=== PATIENT | male | born 1955 | race African-American/Black ===

== ENCOUNTER 2017-03-14 12:03 | Day surgery (SDC) | payer MEDICAID ==
[~2017-03-14] VITALS: Ht 167.6 cm; Wt 78.0 kg
[~2017-03-14 12:03] MED LIST: AMLO10 PO; METO50; OMPR20CCR PO
[2017-03-14] MEDS ORDERED: MONT10TA4 PO (12:54)
[2017-03-14] MEDS ORDERED: CILO50TA PO (12:54)
[2017-03-14] MEDS ORDERED: GABA300C5 PO (12:54)
[2017-03-14] MEDS ORDERED: HYDR25TA5 PO (12:54)
[2017-03-14] MEDS ORDERED: ZANA4CAP PO (12:54)
[2017-03-14] MEDS ORDERED: ASPI81TA81 PO (12:54)
[2017-03-14] MEDS ORDERED: CELE200C PO (12:54)
[2017-03-14] MEDS ORDERED: TELM1TAB56 PO (12:54)
[2017-03-14 12:56] VITALS: BP 125/73; PULSE 120; RESP 18; O2SAT 92
[2017-03-14 12:57] LABS: MEAN CORPUSCULAR HGB CONC 29.9 % (32.0-36.0)
[2017-03-14 13:09] LABS: HEMATOCRIT 24.6 % (39.0-51.0); MEAN CELL VOLUME 64.1 FL (80.0-100.0); MEAN CORPUSCULAR HEMOGLOBIN 19.2 PG (27.0-34.0); PLATELET COUNT 638 TH/MM3 (150-450); RED BLOOD COUNT 3.84 MIL/MM3 (4.50-5.90); RED CELL DISTRIBUTION WIDTH 19.5 % (11.6-17.2); WHITE BLOOD COUNT 8.1 TH/MM3 (4.0-11.0)
[2017-03-14 13:10] LABS: HEMO FLAGS AUTO DIFF
[2017-03-14] MEDS ORDERED: SODIUM BICARBONATE 100 MEQ in D5W 1000 ML IV SCH (13:15)
[2017-03-14 13:17] LABS: INTERNATIONAL NORMALIZED RATIO 0.9 RATIO; PROTHROMBIN TIME - PATIENT 10.3 SEC (9.8-11.6)
[2017-03-14 13:28] LABS: BICARBONATE 25.3 MEQ/L (21.0-32.0); POTASSIUM 4.4 MEQ/L (3.5-5.1)
[2017-03-14 13:32] LABS: CORRECTED NUCLEATED RBC 1 /100 WBC (0-0); NEUTROPHIL # MANUAL DIFF 6.2 TH/MM3 (1.8-7.7); POLYS (SEG NEUTROPHILS) 77 % (16-70); WBC DIFF SAMPLE 100
[2017-03-14 13:33] LABS: PLATELET ESTIMATE SMEAR HIGH (NORMAL); PLATELET MORPHOLOGY NORMAL (NORMAL)
[2017-03-14 13:34] LABS: ACANTHOCYTES OCC (NORMAL); SCAN/DIFF FINAL DIFF MANUAL
[2017-03-14] MEDS ORDERED: IOHEXOL 350 MG/ML 50 ML BTL (for Cath Lab) OTHER ONE (15:45)
[2017-03-14] MEDS ORDERED: HEPARIN-NS/PF INJ 500 ML ONE (15:52)
[2017-03-14] MEDS ORDERED: MIDAZOLAM HCL 5 MG/5 ML VIAL ONE (15:53)
[2017-03-14] MEDS ORDERED: HEPARIN SODIUM - IV 10,000 UNITS/10 ML VIAL ONE (15:53)
[2017-03-14] MEDS ORDERED: NITROGLYCERIN INJ 5 ML ONE (15:53)
--- NOTE | 2017-03-14 16:23 | HHI.PR ---
Immediate Post Op Note Procedure Date: March 14, 2017 Pre Op Diagnosis: R LE claudication, PAD Post Op Diagnosis: R LE claudication, PAD Surgeon: Miguel Murphy Second Chef(s): none Procedure: R LE angiogram Findings: distal RAIL MANAGER stenosis Patent SFA, popliteal and 3 vessel runoff Complications: none Specimen(s) removed: none Estimated blood loss: 5 mL Anesthesia: MAC Drains: None Patient to: Other (DOCU) Patient Condition: Good Date/Time of Procedure: SEE SURGICAL CARE RECORD Miguel Murphy MD March 14, 2017 16:23
--- NOTE | 2017-03-16 10:19 | MP ---
cc: MIGUEL MURPHY MD DATE OF SURGERY 03/14/2017 PREOPERATIVE DIAGNOSIS Right lower extremity claudication, peripheral arterial occlusive disease. POSTOPERATIVE DIAGNOSIS Right lower extremity claudication, peripheral arterial occlusive disease. PROCEDURE Right lower extremity angiogram ATTENDING SURGEON Miguel Murphy MD ANESTHESIA Local with sedation INDICATIONS Mr. Rodriguez is a 59 year-old gentleman with right lower extremity claudication. He previously had an SFA angioplasty. He has a palpable femoral pulse and is taken to the operating room for angiographic evaluation and treatment. He has no prior catheterization available for my review since the recurrence of his symptoms. DESCRIPTION OF PROCEDURE Informed consent was obtained from the patient. He was taken to the operating room and placed supine on the operating room table. An appropriate time out was taken to ensure the patient's identity, operative site and planned procedure. The administration of antibiotics was not necessary since this is a clean procedure without planned implantation of any foreign object. Everyone in the room agreed with the time out and we proceeded. His left groin was anesthetized with 1% lidocaine and a 21 gauge micropuncture needle was used to access the left common femoral artery. This was exchanged using Seldinger technique for a micropuncture sheath through which a 0.025 Glidewire was introduced. The micropuncture sheath was exchanged for a 4 [place] sheath and a VCF catheter was placed over the wire into the sheath and an iliac angiogram was obtained. The glide wire was reintroduced and navigated down to the right common femoral artery. The VCF catheter was advanced over this and the right lower extremity arteriogram was obtained. The wire, catheter and sheath were removed. Pressure was held for hemostasis. There were no complications and I was present for the entire procedure. INTERPRETATION IMAGES The patient has patent right common and external iliac arteries without any hemodynamically significant stenoses. The right common iliac artery is patent except for the distal aspect which has a high grade stenosis. The SFA is patent. The profunda is patent and the popliteal artery is patent. There is three vessel runoff below the knee. Miguel Murphy MD RJF/DJL /4:27 PM /10:08 AM
== END 2017-03-14 19:15 | disposition home or self-care (01) ==
LOC: HDOC 12:03 → HDIC 12:04 → HDOC 19:15
PROVIDERS: ATTEND Surgery
DX: I70.211 Atherosclerosis of native arteries of extremities with intermittent claudication, right leg (principal); I10 Essential (primary) hypertension; J44.9 Chronic obstructive pulmonary disease, unspecified; E11.9 Type 2 diabetes mellitus without complications; Z79.01 Long term (current) use of anticoagulants
CPT/HCPCS: 36246; 75710; 80048; 85007; 85027; 85610; C1769; C1893; J1644; J2250; J3010; Q9967

== ENCOUNTER 2017-03-23 16:19 | Emergency (ER) | payer MEDICAID ==
[~2017-03-23] VITALS: Ht 167.6 cm; Wt 78.0 kg
[~2017-03-23 16:19] MED LIST changes: +ASPI81TA81 PO; +CELE200C PO; +CILO50TA PO; +GABA300C5 PO; +HYDR25TA5 PO; -METO50; +MONT10TA4 PO; +TELM1TAB56 PO; +ZANA4CAP PO
[2017-03-23 16:21] VITALS: BP 117/66; PULSE 118; RESP 20; TEMP 98; O2SAT 98
--- NOTE | 2017-03-23 16:26 | PD ---
Physical Exam Time Seen by Provider: 16:22 Narrative 61yo M c/o painful swallowing with a lump in his throat on the left side x 2months. Has been seen by PCP and was given Azithromycin, which he took 2 months ago. Can swallow own saliva and fluids. Chokes on solid foods. Denies fever, vomiting. Patient seen in triage. Awaiting bed placement. VS reviewed. Data Data Last Documented VS Vital Signs Date Time Temp Pulse Resp B/P Pulse Ox O2 Delivery O2 Flow Rate FiO2 03/23/17 16:21 98.0 118 20 117/66 98 MDM Supervised Visit with MING: Tawny Bianchi March 23, 2017 16:26
[2017-03-23 17:44] LABS: MEAN CORPUSCULAR HGB CONC 29.4 % (32.0-36.0)
[2017-03-23 17:45] VITALS: O2SAT 97
[2017-03-23] MEDS ORDERED: SODIUM CHLORIDE 0.9% FLUSH 10 ML FLUSH IV FLUSH PRN (17:45)
--- NOTE | 2017-03-23 17:47 | PD ---
HPI Chief Complaint: ENT Complaint Time Seen by Provider: 17:44 Travel History International Travel<30 days: No Contact w/Intl Traveler<30days: No Traveled to known affect area: No History of Present Illness HPI Patient comes in complaining of foreign body sensation in his throat ongoing for 2 months. Patient states he has a painful lump when he swallows the left side of his neck. Patient states that he took a Z-Lon prescribed by Dr. Branch this seemed to help a little bit however he continues to have symptoms. Patient reports symptoms are getting progressively worse. Patient states he is able to swallow solids and liquids however swallowing solids is becoming more more difficult. Patient states when he swallows liquids starts off difficulty out of the feels as though throat opens up and he is able to swallow better. Denies any fevers, weight loss, shortness breath, chest pain, or radiation of the pain. PFSH Past Medical History Asthma: Yes Blood Disorders: No Heart Rhythm Problems: No Cancer: No Cardiovascular Problems: Yes High Cholesterol: Yes Chest Pain: No Congestive Heart Failure: No COPD: Yes Diabetes: Yes Diminished Hearing: No Endocrine: Yes Gastrointestinal Disorders: No GERD: Yes Glaucoma: No Genitourinary: No Hepatitis: No Hiatal Hernia: No Hypertension: Yes Immune Disorder: No Musculoskeletal: Yes Neurologic: No Psychiatric: No Reproductive: No Respiratory: Yes (HX RIGHT PNEUMOTHORAX - CONSTRUCTION ACCIDENT) Integumentary: No Sleep Apnea: No Thyroid Disease: No Ulcer: Yes Past Surgical History Body Medical Devices: METAL PLATE IN ANKLE Thoracic Surgery: No Social History Alcohol Use: Yes (2-3/DAY) Tobacco Use: No (Reform 11 months) Substance Use: Yes (Marijuana) Allergies-Medications (Allergen,Severity, Reaction): Coded Allergies: Aspirin (Verified Adverse Reaction, Severe, Heartburn, 03/23/17) Reported Meds & Prescriptions Reported Meds & Active Scripts Active Reported Amlodipine (Amlodipine Besylate) 5 Mg Tab 5 Mg PO HS Zanaflex (Tizanidine HCl) 4 Mg Cap 4 Mg PO BID Micardis (Telmisartan) 80 Mg Tab 80 Mg PO DAILY Montelukast (Montelukast Sodium) 10 Mg Tab 10 Mg PO HS Hydrochlorothiazide 25 Mg Tab 25 Mg PO DAILY Gabapentin 300 Mg Cap 300 Mg PO HS Cilostazol 50 Mg Tab 50 Mg PO BID Celebrex (Celecoxib) 200 Mg Cap 200 Mg PO BID Aspir-81 (Aspirin) 81 Mg Tabdr 81 Mg PO DAILY Review of Systems Except as stated in HPI: all other systems reviewed are Neg Physical Exam Narrative GENERAL: Well-developed, overly nourished, in no acute distress, and non-ill appearing. SKIN: Focused skin assessment warm and dry. HEAD: Atraumatic. Normocephalic. EYES: Pupils equal and round. EOMI. No scleral icterus. No injection or drainage. ENT: No nasal bleeding or discharge. Mucous membranes pink and moist. Posterior pharynx nonerythematous without exudate. Uvula is midline. Patient speaking in full sentences without difficulty. Patient is able swallow his own saliva. NECK: Trachea midline. No cervical lymphadenopathy or palpable masses appreciated. Supple. No nuclear rigidity. CARDIOVASCULAR: Regular rate and rhythm. No murmur appreciated. RESPIRATORY: No accessory muscle use. No respiratory distress. Clear to auscultation. Breath sounds equal bilaterally. MUSCULOSKELETAL: No obvious deformities. No clubbing. No cyanosis. No edema. Full range of motion. NEUROLOGICAL: Awake and alert. No obvious cranial nerve deficits. Motor grossly within normal limits. Normal speech. PSYCHIATRIC: Appropriate mood and affect; insight and judgment normal. Data Data Last Documented VS Vital Signs Date Time Temp Pulse Resp B/P Pulse Ox O2 Delivery O2 Flow Rate FiO2 03/23/17 21:39 96 15 116/65 99 03/23/17 17:51 Room Air 03/23/17 16:21 98.0 Orders Basic Metabolic Panel (Bmp) (03/23/17 17:42) Complete Blood Count With Diff (03/23/17 17:42) Prothrombin Time / Inr (Pt) (03/23/17 17:42) Act Partial Throm Time (Ptt) (03/23/17 17:42) Iv Access Insert/Monitor (03/23/17 17:42) Ecg Monitoring (03/23/17 17:42) Oximetry (03/23/17 17:42) Sodium Chloride 0.9% Flush (Ns Flush) (03/23/17 17:45) Ct Soft Tiss Neck W/O Iv Cont (03/23/17 ) Potassium, Serum (K) (03/23/17 20:43) Labs Laboratory Tests Test 03/23/17 03/23/17 19:30 20:45 White Blood Count 12.1 TH/MM3 Red Blood Count 3.98 MIL/MM3 Hemoglobin 7.5 GM/DL Hematocrit 25.4 % Mean Corpuscular Volume 63.7 FL Mean Corpuscular Hemoglobin 18.8 PG Mean Corpuscular Hemoglobin 29.4 % Concent Red Cell Distribution Width 18.6 % Platelet Count 753 TH/MM3 Mean Platelet Volume 7.8 FL Neutrophils (%) (Auto) 62.1 % Lymphocytes (%) (Auto) 28.2 % Monocytes (%) (Auto) 7.5 % Eosinophils (%) (Auto) 0.4 % Basophils (%) (Auto) 1.8 % Neutrophils # (Auto) 7.5 TH/MM3 Lymphocytes # (Auto) 3.4 TH/MM3 Monocytes # (Auto) 0.9 TH/MM3 Eosinophils # (Auto) 0.1 TH/MM3 Basophils # (Auto) 0.2 TH/MM3 CBC Comment DIFF FINAL Differential Comment Prothrombin Time 9.6 SEC Prothromb Time International 0.9 RATIO Ratio Activated Partial 21.5 SEC Thromboplast Time Sodium Level 137 MEQ/L Potassium Level 6.3 MEQ/L 4.6 MEQ/L Chloride Level 106 MEQ/L Carbon Dioxide Level 21.0 MEQ/L Anion Gap 10 MEQ/L Blood Urea Nitrogen 22 MG/DL Creatinine 2.11 MG/DL Estimat Glomerular Filtration 39 ML/MIN Rate Random Glucose 87 MG/DL Calcium Level 9.1 MG/DL MDM Medical Decision Making Medical Screen Exam Complete: Yes Emergency Medical Condition: Yes Differential Diagnosis Dysphagia, abscess, mass, other Narrative Course Patient was seen and examined. Initial lab for studies and radiology studies were ordered. Potassium was noted to be elevated on initial laboratory report but is hemolyzed. We'll recheck potassium. Patient was signed out to Dr. Srivastava at the end of my shift. Please see his documentation for final diagnosis and disposition. Allan Alejandra March 23, 2017 17:46
[2017-03-23 17:51] VITALS: BP 106/66; PULSE 110; RESP 16; O2SAT 100
[2017-03-23] MEDS ORDERED: AMLO5TAB2 PO (18:17)
[2017-03-23 19:51] LABS: AUTOMATED NEUTROPHIL # 7.5 TH/MM3 (1.8-7.7); BASOPHIL # 0.2 TH/MM3 (0-0.2); BASOPHIL % 1.8 % (0.0-2.0); EOSINOPHIL # 0.1 TH/MM3 (0-0.4); EOSINOPHIL % 0.4 % (0.0-4.0); HEMATOCRIT 25.4 % (39.0-51.0); HEMO FLAGS DIFF FINAL; LYMPH % 28.2 % (9.0-44.0); LYMPHOCYTE # 3.4 TH/MM3 (1.0-4.8); MEAN CELL VOLUME 63.7 FL (80.0-100.0); MEAN CORPUSCULAR HEMOGLOBIN 18.8 PG (27.0-34.0); MONO % 7.5 % (0.0-8.0); NEUT % 62.1 % (16.0-70.0); PLATELET COUNT 753 TH/MM3 (150-450); RED BLOOD COUNT 3.98 MIL/MM3 (4.50-5.90); RED CELL DISTRIBUTION WIDTH 18.6 % (11.6-17.2); WHITE BLOOD COUNT 12.1 TH/MM3 (4.0-11.0)
[2017-03-23 19:57] LABS: APTT (PATIENT) 21.5 SEC (24.3-30.1); INTERNATIONAL NORMALIZED RATIO 0.9 RATIO; PROTHROMBIN TIME - PATIENT 9.6 SEC (9.8-11.6)
[2017-03-23 20:31] LABS: POTASSIUM 6.3 MEQ/L (3.5-5.1)
--- NOTE | 2017-03-23 20:48 | PD ---
Physical Exam Narrative Patient was seen by bindery library technical assistant and signed out to me. Patient has history of GI bleed, GERD, chronic kidney disease, cardiac arrhythmia, hypertension, asthma, and was seen by GI specialist in the past. Data Data Last Documented VS Vital Signs Date Time Temp Pulse Resp B/P Pulse Ox O2 Delivery O2 Flow Rate FiO2 03/23/17 21:39 96 15 116/65 99 03/23/17 17:51 Room Air 03/23/17 16:21 98.0 Orders Basic Metabolic Panel (Bmp) (03/23/17 17:42) Complete Blood Count With Diff (03/23/17 17:42) Prothrombin Time / Inr (Pt) (03/23/17 17:42) Act Partial Throm Time (Ptt) (03/23/17 17:42) Iv Access Insert/Monitor (03/23/17 17:42) Ecg Monitoring (03/23/17 17:42) Oximetry (03/23/17 17:42) Sodium Chloride 0.9% Flush (Ns Flush) (03/23/17 17:45) Ct Soft Tiss Neck W/O Iv Cont (03/23/17 ) Potassium, Serum (K) (03/23/17 20:43) Labs Laboratory Tests Test 03/23/17 03/23/17 19:30 20:45 White Blood Count 12.1 TH/MM3 Red Blood Count 3.98 MIL/MM3 Hemoglobin 7.5 GM/DL Hematocrit 25.4 % Mean Corpuscular Volume 63.7 FL Mean Corpuscular Hemoglobin 18.8 PG Mean Corpuscular Hemoglobin 29.4 % Concent Red Cell Distribution Width 18.6 % Platelet Count 753 TH/MM3 Mean Platelet Volume 7.8 FL Neutrophils (%) (Auto) 62.1 % Lymphocytes (%) (Auto) 28.2 % Monocytes (%) (Auto) 7.5 % Eosinophils (%) (Auto) 0.4 % Basophils (%) (Auto) 1.8 % Neutrophils # (Auto) 7.5 TH/MM3 Lymphocytes # (Auto) 3.4 TH/MM3 Monocytes # (Auto) 0.9 TH/MM3 Eosinophils # (Auto) 0.1 TH/MM3 Basophils # (Auto) 0.2 TH/MM3 CBC Comment DIFF FINAL Differential Comment Prothrombin Time 9.6 SEC Prothromb Time International 0.9 RATIO Ratio Activated Partial 21.5 SEC Thromboplast Time Sodium Level 137 MEQ/L Potassium Level 6.3 MEQ/L 4.6 MEQ/L Chloride Level 106 MEQ/L Carbon Dioxide Level 21.0 MEQ/L Anion Gap 10 MEQ/L Blood Urea Nitrogen 22 MG/DL Creatinine 2.11 MG/DL Estimat Glomerular Filtration 39 ML/MIN Rate Random Glucose 87 MG/DL Calcium Level 9.1 MG/DL [facility] Supervised Visit with MING: Yes Interpretation(s) 22:[address] scan of the neck shows mild nonspecific adenopathy. CBC stable since last visit. Potassium 4.6. BUN 22. Creatinine 2.11. Diagnosis Primary Impression: Dysphagia Qualified Code: R13.12 - Oropharyngeal dysphagia Additional Impression: Anemia Qualified Code: D64.9 - Anemia, unspecified type Patient Instructions: General Instructions Additional Instruction: Continue with medications. Follow-up with personal physician and GI specialist. Return if worse. Med/Other Pt SpecificInfo: No Change to Meds Disposition: 01 DISCHARGE HOME Condition: Stable Vinny Srivastava MD March 23, 2017 20:48
[2017-03-23 21:39] VITALS: BP 116/65; PULSE 96; RESP 15; O2SAT 99
--- NOTE | 2017-03-23 21:58 | RADRPT ---
EXAM DATE/TIME: 03/23/2017 21:19 [place] COMPARISON: No previous studies available for comparison. INDICATIONS : Sore throat, possible foreign body. RADIATION DOSE: 15.00 CTDIvol (mGy) MEDICAL HISTORY : Hypertension. Gastroesophageal reflux disease. Diabetes mellitus type 2. SURGICAL HISTORY : None. ENCOUNTER: Initial ACUITY: 1 day PAIN SCORE: 5/10 LOCATION: Throat TECHNIQUE: Volumetric scanning of the neck was performed. Using automated exposure control and a djustment of the mA and/or kV according to patient size, radiation dose was kept as low as reasonably achievable to obtain optimal diagnostic quality images. FINDINGS: Study was done without intravenous contrast. There is minimal nonspecific adenopathy e vident. Definite mass is not appreciated. I see no radiopaque foreign body. Calcification is seen in the right lobe of the thyroid. CONCLUSION: 1. I see no radiopaque foreign body. 2. Minimal nonspecific adenopathy. Zheng Ramirez MD FACR on March 23, 2017 at 21:45 Board Certified Radiologist. This report was verified electronically.
== END 2017-03-23 22:33 | disposition home or self-care (01) ==
LOC: NEPD 16:19
DX: R13.12 Dysphagia, oropharyngeal phase (principal); D64.9 Anemia, unspecified; E11.9 Type 2 diabetes mellitus without complications; I10 Essential (primary) hypertension; E78.00 Pure hypercholesterolemia, unspecified; Z87.09 Personal history of other diseases of the respiratory system; Z86.79 Personal history of other diseases of the circulatory system; Z87.19 Personal history of other diseases of the digestive system; Z87.39 Personal history of other diseases of the musculoskeletal system and connective tissue
CPT/HCPCS: 70490; 80048; 84132; 85025; 85610; 85730

== ENCOUNTER 2017-03-25 16:42 | Emergency (ER) | payer MEDICAID ==
[~2017-03-25] VITALS: Ht 167.6 cm; Wt 78.0 kg
[~2017-03-25 16:42] MED LIST changes: +AMLO5TAB2 PO
[2017-03-25 16:51] LABS: MEAN CORPUSCULAR HGB CONC 29.8 % (32.0-36.0)
[2017-03-25 16:52] VITALS: BP 113/63; PULSE 107; RESP 16; TEMP 98.2; O2SAT 100
[2017-03-25 16:56] VITALS: RESP 16; O2SAT 100
[2017-03-25] MEDS ORDERED: SODIUM CHLORID 0.9% 500 ML INJ 500 ML IV ONE (17:00)
[2017-03-25] MEDS ORDERED: SODIUM CHLORIDE 0.9% FLUSH 10 ML FLUSH IVF PRN (17:00)
--- NOTE | 2017-03-25 17:10 | PD ---
HPI Chief Complaint: General Weakness Time Seen by Provider: 16:46 Travel History International Travel<30 days: No Contact w/Intl Traveler<30days: No Traveled to known affect area: No History of Present Illness HPI Patient is a 61-year-old male presents emergency Department with complaint of generalized weakness and a near syncopal episode. Patient states that he has been well recently. He has some family from [place] visit spontaneously and spent the majority of the day outside in the heat. Believes he may be dehydrated. Apparently he stood up, became lightheaded, dizzy with presyncopal episode. States he was nauseous and broke out into a sweat. EMS called, noted patient to be slightly hypotensive with systolics in the 90s upon arrival. In the interim blood pressures normalized and patient feels improved. At no point time did he have any chest pain, shortness of breath, palpitations. PFSH Past Medical History Asthma: Yes Blood Disorders: No Heart Rhythm Problems: No Cancer: No Cardiovascular Problems: Yes (HTN) High Cholesterol: Yes Chest Pain: No Congestive Heart Failure: No COPD: Yes Diabetes: Yes Patient Takes Glucophage: No Diminished Hearing: No Endocrine: Yes Gastrointestinal Disorders: No GERD: Yes Glaucoma: No Genitourinary: No Hepatitis: No Hiatal Hernia: No Hypertension: Yes Immune Disorder: No Implanted Vascular Access Dvce: Yes (bilatera femoral stents) Musculoskeletal: Yes Neurologic: No Psychiatric: No Reproductive: No Respiratory: Yes (HX RIGHT PNEUMOTHORAX - CONSTRUCTION ACCIDENT) Integumentary: No Sleep Apnea: No Thyroid Disease: No Ulcer: Yes Past Surgical History Body Medical Devices: METAL PLATE IN ANKLE Thoracic Surgery: No Other Surgery: No Social History Alcohol Use: Yes (2-3/DAY) Tobacco Use: No (Reform 11 months) Substance Use: Yes (Marijuana) Allergies-Medications (Allergen,Severity, Reaction): Coded Allergies: Aspirin (Verified Adverse Reaction, Severe, Heartburn, 03/25/17) Reported Meds & Prescriptions Reported Meds & Active Scripts Active Reported Amlodipine (Amlodipine Besylate) 5 Mg Tab 5 Mg PO HS Zanaflex (Tizanidine HCl) 4 Mg Cap 4 Mg PO BID Micardis (Telmisartan) 80 Mg Tab 80 Mg PO DAILY Montelukast (Montelukast Sodium) 10 Mg Tab 10 Mg PO HS Hydrochlorothiazide 25 Mg Tab 25 Mg PO DAILY Gabapentin 300 Mg Cap 300 Mg PO HS Cilostazol 50 Mg Tab 50 Mg PO BID Celebrex (Celecoxib) 200 Mg Cap 200 Mg PO BID Aspir-81 (Aspirin) 81 Mg Tabdr 81 Mg PO DAILY Review of Systems Except as stated in HPI: all other systems reviewed are Neg Physical Exam Narrative GENERAL: Well-appearing middle-aged male in no acute distress SKIN: Focused skin assessment warm/dry. HEAD: Normocephalic. EYES: Pupils equal and round. No scleral icterus. No injection or drainage. ENT: No nasal bleeding or discharge. Mucous membranes pink and moist. NECK: Supple CARDIOVASCULAR: Borderline tachycardia with heart rate in the 100s, regular rhythm. No murmur appreciated. RESPIRATORY: No accessory muscle use. Clear to auscultation. Breath sounds equal bilaterally. GASTROINTESTINAL: Abdomen soft, non-tender, nondistended. Rotund MUSCULOSKELETAL: No obvious deformities. No edema. NEUROLOGICAL: Awake and alert. No obvious cranial nerve deficits. Motor grossly within normal limits. Normal speech. PSYCHIATRIC: Appropriate mood and affect; insight and judgment normal. Data Data Last Documented VS Vital Signs Date Time Temp Pulse Resp B/P Pulse Ox O2 Delivery O2 Flow Rate FiO2 03/25/17 16:56 16 100 Room Air 03/25/17 16:52 98.2 107 113/63 Orders Electrocardiogram (03/25/17 16:50) Basic Metabolic Panel (Bmp) (03/25/17 16:50) Complete Blood Count With Diff (03/25/17 16:50) Ecg Monitoring (03/25/17 16:50) Iv Access Insert/Monitor (03/25/17 16:50) Oximetry (03/25/17 16:50) Sodium Chloride 0.9% Flush (Ns Flush) (03/25/17 17:00) Sodium Chlorid 0.9% 500 Ml Inj (Ns 500 M (03/25/17 17:00) Labs Laboratory Tests Test 03/25/17 17:05 White Blood Count 10.8 TH/MM3 Red Blood Count 4.12 MIL/MM3 Hemoglobin 7.7 GM/DL Hematocrit 26.0 % Mean Corpuscular Volume 63.1 FL Mean Corpuscular Hemoglobin 18.8 PG Mean Corpuscular Hemoglobin 29.8 % Concent Red Cell Distribution Width 19.2 % Platelet Count 613 TH/MM3 Mean Platelet Volume 7.5 FL Neutrophils (%) (Auto) 59.6 % Lymphocytes (%) (Auto) 30.3 % Monocytes (%) (Auto) 7.9 % Eosinophils (%) (Auto) 0.8 % Basophils (%) (Auto) 1.4 % Neutrophils # (Auto) 6.4 TH/MM3 Lymphocytes # (Auto) 3.3 TH/MM3 Monocytes # (Auto) 0.8 TH/MM3 Eosinophils # (Auto) 0.1 TH/MM3 Basophils # (Auto) 0.1 TH/MM3 CBC Comment DIFF FINAL Differential Comment Sodium Level 138 MEQ/L Potassium Level 4.9 MEQ/L Chloride Level 105 MEQ/L Carbon Dioxide Level 24.4 MEQ/L Anion Gap 9 MEQ/L Blood Urea Nitrogen 21 MG/DL Creatinine 2.03 MG/DL Estimat Glomerular Filtration 41 ML/MIN Rate Random Glucose 120 MG/DL Calcium Level 9.3 MG/DL MDM Medical Decision Making Medical Screen Exam Complete: Yes Emergency Medical Condition: Yes Medical Record Reviewed: Yes Differential Diagnosis 61-year-old male here with complaint of presyncopal episode. Differential includes heat exhaustion/heat stroke, presyncope, vasovagal, dehydration, electrolyte abnormality, symptomatic anemia, arrhythmia. Narrative Course Patient placed on monitor, IV established and blood obtained. Twelve-lead EKG shows sinus tachycardia, heart rate [address] abnormalities, normal intervals. Given 500 mL normal saline bolus. CBC, BMP notable for baseline anemia and renal insufficiency. Patient felt improved and will be discharged home. Diagnosis Primary Impression: Pre-syncope Additional Impressions: Anemia Qualified Code: D64.9 - Anemia, unspecified type CKD (chronic kidney disease) Qualified Code: N18.9 - Chronic kidney disease, unspecified CKD stage Referrals: Primary Care Physician as needed Additional Instructions: Drink plenty of fluids and avoid prolonged heat exposure. Med/Other Pt SpecificInfo: No Change to Meds Disposition: 01 DISCHARGE HOME Condition: Stable Татьяна Fuller MD March 25, 2017 17:10
[2017-03-25 17:37] LABS: AUTOMATED NEUTROPHIL # 6.4 TH/MM3 (1.8-7.7); BASOPHIL # 0.1 TH/MM3 (0-0.2); BASOPHIL % 1.4 % (0.0-2.0); EOSINOPHIL # 0.1 TH/MM3 (0-0.4); EOSINOPHIL % 0.8 % (0.0-4.0); HEMO FLAGS DIFF FINAL; LYMPH % 30.3 % (9.0-44.0); LYMPHOCYTE # 3.3 TH/MM3 (1.0-4.8); MEAN CELL VOLUME 63.1 FL (80.0-100.0); MEAN CORPUSCULAR HEMOGLOBIN 18.8 PG (27.0-34.0); MONO % 7.9 % (0.0-8.0); NEUT % 59.6 % (16.0-70.0); PLATELET COUNT 613 TH/MM3 (150-450); RED BLOOD COUNT 4.12 MIL/MM3 (4.50-5.90); RED CELL DISTRIBUTION WIDTH 19.2 % (11.6-17.2); WHITE BLOOD COUNT 10.8 TH/MM3 (4.0-11.0)
[2017-03-25 17:58] LABS: BICARBONATE 24.4 MEQ/L (21.0-32.0); POTASSIUM 4.9 MEQ/L (3.5-5.1)
--- NOTE | 2017-03-26 16:48 | EKG ---
Date Performed: 03/25/2017 Time Performed: 16:51:53 PTAGE: 61 years EKG: SINUS TACHYCARDIA ST ELEVATION, CONSIDER INFERIOR INJURY ACUTE IN INTERPRETATION BASE D ON A DEFAULT AGE OF 40 YEARS PREVIOUS TRACING 03/15/2014 @ 15.28.26 Compared to prior tracing no significant change DOCTOR: Trista Keyes Interpretating Date/Time 03/26/2017 16:46:43
--- NOTE | 2017-03-26 16:49 | EKG ---
Date Performed: 03/25/2017 Time Performed: 17:01:58 PTAGE: 61 years EKG: SINUS TACHYCARDIA ABNORMAL RHYTHM ECG INTERPRETATION BASED ON A DEFAULT AGE OF 40 YEARS PREVIOUS TRACING : 03/25/2017 16.53 Compared to prior tracing no significant change DOCTOR: Trista Keyes Interpretating Date/Time 03/26/2017 16:47:09
--- NOTE | 2017-03-26 16:49 | EKG ---
Date Performed: 03/25/2017 Time Performed: 16:53:05 PTAGE: 61 years EKG: SINUS TACHYCARDIA ABNORMAL RHYTHM ECG INTERPRETATION BASED ON A DEFAULT AGE OF 40 YEARS PREVIOUS TRACING : 03/25/2017 16.51 Compared to prior tracing no significant change DOCTOR: Trista Keyes Interpretating Date/Time 03/26/2017 16:46:58
--- NOTE | 2017-03-26 16:50 | EKG ---
Date Performed: 03/25/2017 Time Performed: 17:02:56 PTAGE: 61 years EKG: SINUS TACHYCARDIA ABNORMAL RHYTHM ECG INTERPRETATION BASED ON A DEFAULT AGE OF 40 YEARS PREVIOUS TRACING : 03/25/2017 17.01 Compared to prior tracing no significant change DOCTOR: Trista Keyes Interpretating Date/Time 03/26/2017 16:47:24
== END 2017-03-25 18:36 | disposition home or self-care (01) ==
LOC: NEPC 16:42
DX: R55 Syncope and collapse (principal); D64.9 Anemia, unspecified; I12.9 Hypertensive chronic kidney disease with stage 1 through stage 4 chronic kidney disease, or unspecified chronic kidney disease; N18.9 Chronic kidney disease, unspecified
CPT/HCPCS: 80048; 85025; 93005; 96360; 99285; J7040

== ENCOUNTER 2017-10-03 13:59 | Inpatient (IN) | payer MEDICAID ==
[~2017-10-03] VITALS: Ht 167.6 cm; Wt 78.6 kg
[~2017-10-03 13:59] MED LIST changes: -AMLO10 PO; -OMPR20CCR PO
[2017-10-03 14:01] VITALS: BP 124/67; PULSE 112; RESP 17; TEMP 97.8; O2SAT 98
--- NOTE | 2017-10-03 14:25 | PD ---
HPI Chief Complaint: Pain: Acute or Chronic Time Seen by Provider: 14:18 Travel History International Travel<30 days: No Contact w/Intl Traveler<30days: No Traveled to known affect area: No History of Present Illness HPI 62-year-old male patient with history of PAD status post bilateral femoral stents, right ankle ORIF, presents to the ER today for 5 days history of right ankle and lower leg pains which she states has been getting worse her last few days. Pain is measured at an 8 out of 10 and constant. He states that it worsens with weightbearing. He denies any injuries, fevers, shortness of breath , or any other symptoms. He actually was seen [address] Murphy who had checked it out, does not think is vascular, and had referred him to see a manager ccu. 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) Integumentary: No Sleep Apnea: No Thyroid Disease: No Ulcer: Yes Tetanus Vaccination: < 5 Years Influenza Vaccination: No Past Surgical History Body Medical Devices: METAL PLATE IN ANKLE Thoracic Surgery: No Other Surgery: No Social History Alcohol Use: Yes (2-3/DAY) Tobacco Use: No (quit 3 years ago) Substance Use: Yes (Marijuana) Allergies-Medications (Allergen,Severity, Reaction): Coded Allergies: aspirin (Unverified Adverse Reaction, Severe, Heartburn, 10/03/17) Reported Meds & Prescriptions Reported Meds & Active Scripts Active Reported Amlodipine (Amlodipine Besylate) 5 Mg Tab 5 Mg PO HS Micardis (Telmisartan) 80 Mg Tab 80 Mg PO DAILY Montelukast (Montelukast Sodium) 10 Mg Tab 10 Mg PO HS Hydrochlorothiazide 25 Mg Tab 25 Mg PO DAILY Gabapentin 300 Mg Cap 300 Mg PO HS Aspir-81 (Aspirin) 81 Mg Tabdr 81 Mg PO DAILY Review of Systems Except as stated in HPI: all other systems reviewed are Neg Physical Exam Narrative GENERAL: Well-developed elderly -G[place] male patient currently in mild distress. Awake and oriented 3. SKIN: Focused skin assessment warm/dry. HEAD: Atraumatic. Normocephalic. EYES: Pupils equal and round. No scleral icterus. No injection or drainage. ENT: No nasal bleeding or discharge. Mucous membranes pink and moist. NECK: Trachea midline. No JVD. CARDIOVASCULAR: Regular rate and rhythm. No murmur appreciated. RESPIRATORY: No accessory muscle use. Clear to auscultation. Breath sounds equal bilaterally. GASTROINTESTINAL: Abdomen soft, non-tender, nondistended. Hepatic and splenic margins not palpable. MUSCULOSKELETAL: No obvious deformities. No clubbing. No cyanosis. EXTREMITIES: No clubbing, cyanosis. There is +1 pitting edema of the right foot. Neurovascularly intact. No joint tenderness, effusion, or edema noted. Tender to palpation of the entire diffuse foot area and lower leg area below the knee. NEUROLOGICAL: Awake and alert. No obvious cranial nerve deficits. Motor grossly within normal limits. Normal speech. PSYCHIATRIC: Appropriate mood and affect; insight and judgment normal. Data Data Last Documented VS Vital Signs Date Time Temp Pulse Resp B/P (MAP) Pulse Ox O2 Delivery O2 Flow Rate FiO2 10/03/17 14:01 97.8 112 17 124/67 (86) 98 Room Air Orders Orders Complete Blood Count With Diff (10/03/17 14:18) Comprehensive Metabolic Panel (10/03/17 14:18) Prothrombin Time / Inr (Pt) (10/03/17 14:18) Act Partial Throm Time (Ptt) (10/03/17 14:18) C-Reactive Protein (Crp) (10/03/17 14:18) Ankle, Limited (Ap&Lat) (10/03/17 14:18) Tibia/Fibula (Ap/Lat) (10/03/17 14:18) Us Leg Venous Doppler (10/03/17 14:18) Lactic Acid Sepsis Protocol (10/03/17 16:00) Blood Culture (10/03/17 16:00) Piperacil-Tazo 4.5 Gm Premix (Zosyn 4.5 (10/03/17 16:00) Vancomycin Inj (Vancomycin Inj) (10/03/17 16:00) Admit Order (Ed Use Only) (10/03/17 16:56) Labs Laboratory Tests Test 10/03/17 14:40 10/03/17 15:32 10/03/17 16:15 White Blood Count 12.4 TH/MM3 Red Blood Count 5.57 MIL/MM3 Hemoglobin 15.0 GM/DL Hematocrit 45.7 % Mean Corpuscular Volume 82.0 FL Mean Corpuscular Hemoglobin 27.0 PG Mean Corpuscular Hemoglobin Concent 32.9 % Red Cell Distribution Width 29.3 % Platelet Count 377 TH/MM3 Mean Platelet Volume 8.5 FL Neutrophils (%) (Auto) 63.1 % Lymphocytes (%) (Auto) 28.2 % Monocytes (%) (Auto) 6.9 % Eosinophils (%) (Auto) 0.4 % Basophils (%) (Auto) 1.4 % Neutrophils # (Auto) 7.8 TH/MM3 Lymphocytes # (Auto) 3.5 TH/MM3 Monocytes # (Auto) 0.9 TH/MM3 Eosinophils # (Auto) 0.0 TH/MM3 Basophils # (Auto) 0.2 TH/MM3 CBC Comment AUTO DIFF Differential Comment AUTO DIFF CONFIRMED Platelet Estimate NORMAL Platelet Morphology Comment CLUMPED Ovalocytes 1+ Blood Urea Nitrogen 18 MG/DL Creatinine 1.45 MG/DL Random Glucose 117 MG/DL Total Protein 9.0 GM/DL Albumin 3.7 GM/DL Calcium Level 10.0 MG/DL Alkaline Phosphatase 124 U/L Aspartate Amino Transf (AST/SGOT) 15 U/L Alanine Aminotransferase (ALT/SGPT) 24 U/L Total Bilirubin 0.4 MG/DL Sodium Level 134 MEQ/L Potassium Level 4.1 MEQ/L Chloride Level 103 MEQ/L Carbon Dioxide Level 20.4 MEQ/L Anion Gap 11 MEQ/L Estimat Glomerular Filtration Rate 60 ML/MIN C-Reactive Protein 2.58 MG/DL Prothrombin Time 10.2 SEC Prothromb Time International Ratio 0.9 RATIO Activated Partial Thromboplast Time 33.9 SEC Lactic Acid Level 1.0 mmol/L MDM Medical Decision Making Medical Screen Exam Complete: Yes Emergency Medical Condition: Yes Medical Record Reviewed: Yes Interpretation(s) Laboratory Tests Test 10/03/17 14:40 10/03/17 15:32 10/03/17 16:15 White Blood Count 12.4 TH/MM3 (4.0-11.0) Red Cell Distribution Width 29.3 % (11.6-17.2) Neutrophils # (Auto) 7.8 TH/MM3 (1.8-7.7) Platelet Morphology Comment CLUMPED (NORMAL) Ovalocytes 1+ (NORMAL) Creatinine 1.45 MG/DL (0.60-1.30) Random Glucose 117 MG/DL (74-106) Total Protein 9.0 GM/DL (6.4-8.2) Alkaline Phosphatase 124 U/L (45-117) Sodium Level 134 MEQ/L (136-145) Carbon Dioxide Level 20.4 MEQ/L (21.0-32.0) Estimat Glomerular Filtration Rate 60 ML/MIN (>89) C-Reactive Protein 2.58 MG/DL (0.00-0.30) Activated Partial Thromboplast Time 33.9 SEC (24.3-30.1) Last 24 hours Impressions Tibia/Fibula X-Ray 10/03/171417 Signed Impressions: Service Date/Time: Tuesday, October 03, 2017 14:28 - CONCLUSION: 1. Intact lateral malleolar fixation hardware without evidence for loosening or acute fracture. Emilio Ramsey MD Lower Extremity Ultrasound 10/03/171417 Signed Impressions: Service Date/Time: Tuesday, October 03, 2017 14:35 - CONCLUSION: 1. No DVT identified. Jackson Ramirez MD Ankle X-Ray 10/03/171417 Signed Impressions: Service Date/Time: Tuesday, October 03, 2017 14:29 - CONCLUSION: 1. Intact lateral malleolar fixation hardware without evidence for loosening or acute fracture. Emilio Ramsey MD Differential Diagnosis Right leg pain and foot pains: Cellulitis versus gouty arthritis versus DVT versus PAD Narrative Course Ultrasound did not show any signs of DVT. X-rays did not show any signs of acute bony injuries or osteomyelitis. His white blood cell count is of and his C-reactive protein is also up, there is concern for underlying cellulitis and IV antibiotics were initiated after blood cultures were drawn. Patient is well vascularized, good Doppler pulses. At this point, my plan would be to admit the patient for further treatment of cellulitis. Case was discussed with [facility] practice resident service for admission. Sepsis Criteria SIRS Criteria (2 or more): Heart rate over 90, WBC > 48450, < 4000 or > 10% bands Sepsis Criteria (SIRS+source): Infect source susp/known Criteria Outcome: Meets sepsis criteria Diagnosis Primary Impression: Cellulitis of right leg Additional Impression: Sepsis affecting skin Admitting Information Admitting Physician Requests: Admit Geoff Andrews MD Oct 03, 2017 14:25
--- NOTE | 2017-10-03 15:17 | RADRPT ---
EXAM DATE/TIME: 10/03/2017 14:35 [facility] COMPARISON: No previous studies available for comparison. INDICATIONS : Right leg pain. MEDICAL HISTORY : Hypercholesterolemia. Hypertension. COPD. Asthma. Ulcer. Right pneumothorax. Diabetes. SURGICAL HISTORY : Right ankle surgery with pin/screws and metal plate placed. Bilateral femoral stents. ENCOUNTER: Initial ACUITY: 1 week PAIN SCORE: 8/10 LOCATION: Right leg. TECHNIQUE: Venous ultrasound of the leg was performed from the inguinal ligament to the proximal calf. Real-bob e, color Doppler and spectral tracing, compression and augmentation techniques were used. FINDINGS: There is normal compressibility of the deep venous system from the inguinal region to the proximal ca lf. No echogenic clot is seen in the lumen of the common femoral, femoral, popliteal, and posterior tibial veins. There is a normal response of the venous system to proximal and distal augmentation an d respiration. CONCLUSION: 1. No DVT identified. Jackson Ramirez MD on October 03, 2017 at 15:14 Board Certified Radiologist. This report was verified electronically.
--- NOTE | 2017-10-03 15:22 | RADRPT ---
EXAM DATE/TIME: 10/03/2017 14:28 [facility] COMPARISON: No previous studies available for comparison. INDICATIONS : Severe pain in right lower leg and ankle for a week, denies trauma, history of stents in both lower e xtremities MEDICAL HISTORY : right ankle fracture, claudication SURGICAL HISTORY : right ankle, bilateral lower extremity arterial stents ENCOUNTER: Initial ACUITY: 1 week PAIN SCORE: 10/10 LOCATION: Right lower leg FINDINGS: Lateral malleolar plate and screw fixation hardware in place. Hardware appears intact without surroun ding lucency to suggest loosening. Osseous structures appear intact without evidence for acute bony f racture or focal bony destruction. Atherosclerotic calcifications are seen in the visualized tibial a rteries. Soft tissues are unremarkable. CONCLUSION: 1. Intact lateral malleolar fixation hardware without evidence for loosening or acute fracture. Emilio Ramsey MD on October 03, 2017 at 15:17 Board Certified Radiologist. This report was verified electronically.
[2017-10-03 15:24] LABS: AUTOMATED NEUTROPHIL # 7.8 TH/MM3 (1.8-7.7); BASOPHIL # 0.2 TH/MM3 (0-0.2); BASOPHIL % 1.4 % (0.0-2.0); EOSINOPHIL % 0.4 % (0.0-4.0); HEMATOCRIT 45.7 % (39.0-51.0); LYMPH % 28.2 % (9.0-44.0); LYMPHOCYTE # 3.5 TH/MM3 (1.0-4.8); MEAN CORPUSCULAR HGB CONC 32.9 % (32.0-36.0); MONO % 6.9 % (0.0-8.0); NEUT % 63.1 % (16.0-70.0); PLATELET COUNT 377 TH/MM3 (150-450); RED BLOOD COUNT 5.57 MIL/MM3 (4.50-5.90); RED CELL DISTRIBUTION WIDTH 29.3 % (11.6-17.2); WHITE BLOOD COUNT 12.4 TH/MM3 (4.0-11.0)
--- NOTE | 2017-10-03 15:25 | RADRPT ---
EXAM DATE/TIME: 10/03/2017 14:29 [facility] COMPARISON: ANKLE RIGHT LIMITED (AP&LAT), November 07, 2011, 8:55. INDICATIONS : Severe pain in right lower leg and ankle for a week, denies trauma, history of stents in both lower e xtremities MEDICAL HISTORY : right ankle fracture, claudication in both lower extremities SURGICAL HISTORY : aterial stents both lower extremities, right ankle ENCOUNTER: Initial ACUITY: 1 week PAIN SCORE: 10/10 LOCATION: Right lower leg FINDINGS: Stable lateral malleolar fixation hardware with trans-syndesmosis screws. Hardware appears intact wit hout evidence for frantz-hardware lucency to suggest loosening. Osseous structures are intact without e vidence for acute bony fracture or focal bony destruction. Talar dome is intact. Vascular calcificati ons are seen in the distal tibial arteries. No significant soft tissue abnormality. CONCLUSION: 1. Intact lateral malleolar fixation hardware without evidence for loosening or acute fracture. Emilio Ramsey MD on October 03, 2017 at 15:20 Board Certified Radiologist. This report was verified electronically.
[2017-10-03 15:38] LABS: HEMO FLAGS AUTO DIFF
[2017-10-03 15:40] LABS: ALT (GPT) 24 U/L (12-78); ANION GAP 11 MEQ/L (5-15); AST (GOT) 15 U/L (15-37); BICARBONATE 20.4 MEQ/L (21.0-32.0); BLOOD UREA NITROGEN 18 MG/DL (7-18); CHLORIDE 103 MEQ/L (98-107); GLOMERULAR FILTRATION RATE 60 ML/MIN (>89); POTASSIUM 4.1 MEQ/L (3.5-5.1); SODIUM (NA) 134 MEQ/L (136-145)
[2017-10-03 15:42] LABS: ALKALINE PHOSPHATASE 124 U/L (45-117); TOTAL BILIRUBIN ADULT 0.4 MG/DL (0.2-1.0)
[2017-10-03] MEDS ORDERED: VANCOMYCIN INJ 1,000 MG in SODIUM CHLOR 0.9% 250 ML INJ 250 ML IV STA (16:00)
[2017-10-03] MEDS ORDERED: PIPERACIL-TAZO 4.5 GM PREMIX 100 ML IV STA (16:00)
[2017-10-03 16:15] LABS: APTT (PATIENT) 33.9 SEC (24.3-30.1); INTERNATIONAL NORMALIZED RATIO 0.9 RATIO; PROTHROMBIN TIME - PATIENT 10.2 SEC (9.8-11.6)
[2017-10-03 16:22] LABS: SCAN/DIFF AUTO DIFF CONFIRMED
[2017-10-03 16:23] LABS: OVALOCYTES 1+ (NORMAL); PLATELET ESTIMATE SMEAR NORMAL (NORMAL); PLATELET MORPHOLOGY CLUMPED (NORMAL)
[2017-10-03 18:02] VITALS: BP 122/72; PULSE 92; RESP 18; O2SAT 100
[2017-10-03] MEDS ORDERED: Vancomycin Consult Pharmacy 1 EA OTHER SCH (19:30)
[2017-10-03] MEDS ORDERED: NALOXONE HCL 0.4 MG/ML AMP IV PUSH PRN (19:30)
[2017-10-03] MEDS ORDERED: ACETAMINOPHEN 325 MG TAB PO PRN (19:30)
[2017-10-03] MEDS ORDERED: ACETAMINOPHEN/HYDROcodone 325 MG/5 MG TAB PO PRN (19:30)
[2017-10-03] MEDS ORDERED: MAGNESIUM HYDROXIDE SUSP 30 ML CUP PO PRN (19:30)
[2017-10-03] MEDS ORDERED: ONDANSETRON HCL 4 MG/2 ML VIAL IVP PRN (19:30)
--- NOTE | 2017-10-03 20:11 | HHI.HP ---
HPI Service Family Medicine Primary Care Physician Tc Branch MD Admission Diagnosis sepsis/right leg cellulitis Diagnoses: International Travel<30 Days: No Contact w/Intl Traveler<30days: No Known Affected Area: No History of Present Illness Patient is a pleasant 62 year old man with PMH significant for PAD s/p bilateral femoral stent placement, right ankle ORIF, who presented to the ED for evaluation of right ankle pain and swelling. He states he noticed severe pain around his right ankle starting on morning, stating the pain was a 10/10. He then started to notice swelling later that day. He states currently the pain is still a 10/10 and has only worsened since . States he cannot move his right ankle joint very much. Denies fevers, chills, CP , SOB. Denies previous history of skin or soft tissue infections. States he has never had issues with his hardware in the ankle. States he was able to ambulate on the right foot but with significant pain. Denies any bleeding or drainage. Review of Systems Constitutional: DENIES: Fever, Chills Eyes: DENIES: Blurred vision, Diplopia Respiratory: DENIES: Cough, Shortness of breath Cardiovascular: DENIES: Chest pain, Palpitations Gastrointestinal: DENIES: Abdominal pain, Bloody stools, Constipation, Diarrhea , Nausea, Vomiting Genitourinary: DENIES: Dysuria Past Family Social History Past Medical History HTN GERD HLD Per EMR, h/o T2DM and Bleeding GI ulcer Remote history of traumatic pneumothorax Last echo in the EMR from 03/2012: Estimated EF of 55-60% Past Surgical History ORIF right ankle, requiring repeat surgery in 11/2011 Per EMR, back surgery Allergies: Coded Allergies: aspirin (Unverified Adverse Reaction, Severe, Heartburn, 10/03/17) Family History Father: HTN Mother: DM Social History Tobacco: Endorses smoking at least 1 PPD for many years, about 30 years total, states he quit smoking when he turned 49 Etoh: Admits to history of heavy drinking in the past, drink of choice was gin, states he also quit heavy drinking when he turned 49 and now states he only has a beer occasionally Illicit drug use: Admits to previous history of smoking THC, otherwise denies anything else Physical Exam Vital Signs Vital Signs Date Time Temp Pulse Resp B/P (MAP) Pulse Ox O2 Delivery O2 Flow Rate FiO2 10/03/17 18:07 10/03/17 18:02 92 18 122/72 (89) 100 Room Air 10/03/17 14:01 97.8 112 17 124/67 (86) 98 Room Air Physical Exam GENERAL: NAD, lying comfortably in bed NEURO: Alert. Normal speech. college archivist grossly intact. SKIN: Erythema overlying the anterior aspect of his right foot extending proximally up to distal right tibia. Visible swelling most prominent around right lateral malleolus. No fluctuance of the area. No open skin lesions or wounds. Right ankle and foot notably warmer compared to left. HEAD: Normocephalic. Atraumatic. EYES: PERRL. EOMI. No scleral icterus. No injection or drainage. ENT: No nasal drainage. Moist mucous membranes. No oral ulcers or lesions. NECK: Supple, trachea midline. No JVD or lymphadenopathy. CARDIOVASCULAR: Regular rate and rhythm without murmurs, rubs, or gallops. Peripheral pulses 2+. Capillary refill < 2 seconds. RESPIRATORY: Breath sounds clear to auscultation and equal bilaterally, without wheezes, rales, or rhonchi. No accessory muscle use. GASTROINTESTINAL: Abdomen soft, nontender, nondistended, normal BS. MUSCULOSKELETAL: Significantly restricted range of motion with plantarflexion, dorsiflexion, internal and external rotation of his right ankle. Full range of motion of left ankle. BACK: Nontender without obvious deformity. Laboratory Laboratory Tests Test 10/03/17 14:40 10/03/17 15:32 10/03/17 16:15 White Blood Count 12.4 Red Blood Count 5.57 Hemoglobin 15.0 Hematocrit 45.7 Mean Corpuscular Volume 82.0 Mean Corpuscular Hemoglobin 27.0 Mean Corpuscular Hemoglobin Concent 32.9 Red Cell Distribution Width 29.3 Platelet Count 377 Mean Platelet Volume 8.5 Neutrophils (%) (Auto) 63.1 Lymphocytes (%) (Auto) 28.2 Monocytes (%) (Auto) 6.9 Eosinophils (%) (Auto) 0.4 Basophils (%) (Auto) 1.4 Neutrophils # (Auto) 7.8 Lymphocytes # (Auto) 3.5 Monocytes # (Auto) 0.9 Eosinophils # (Auto) 0.0 Basophils # (Auto) 0.2 CBC Comment AUTO DIFF Differential Comment AUTO DIFF CONFIRMED Platelet Estimate NORMAL Platelet Morphology Comment CLUMPED Ovalocytes 1+ Blood Urea Nitrogen 18 Creatinine 1.45 Random Glucose 117 Total Protein 9.0 Albumin 3.7 Calcium Level 10.0 Alkaline Phosphatase 124 Aspartate Amino Transf (AST/SGOT) 15 Alanine Aminotransferase (ALT/SGPT) 24 Total Bilirubin 0.4 Sodium Level 134 Potassium Level 4.1 Chloride Level 103 Carbon Dioxide Level 20.4 Anion Gap 11 Estimat Glomerular Filtration Rate 60 C-Reactive Protein 2.58 Prothrombin Time 10.2 Prothromb Time International Ratio 0.9 Activated Partial Thromboplast Time 33.9 Lactic Acid Level 1.0 Date/Time Source Procedure Growth Status 10/03/17 16:14 Blood Peripheral Aerobic Blood Culture Pending Received 10/03/17 16:14 Blood Peripheral Anaerobic Blood Culture Pending Received Result Diagram: 10/03/17 1440 10/03/17 1440 Septic Shock Reassessment Heart: Regular rate and rhythm Lungs: Clear Skin: Warm, Dry Peripheral Pulses: Bounding Right Radial Bounding Left Radial Bounding Right Dorsalis Pedis Bounding Left Dorsalis Pedis Bounding Right Posterior Tibial Bounding Left Posterior Tibial Capillary Refill: <2 seconds Caprini VTE Risk Assessment Caprini VTE Risk Assessment: Mod/High Risk (score >= 2) Caprini Risk Assessment Model Point Value = 1 Point Value = 2 Point Value = 3 Point Value = 5 Age 41-60 Minor surgery BMI > 25 kg/m2 Swollen legs Varicose veins or History of unexplained or recurrent spontaneous Oral contraceptives or hormone replacement Sepsis (< 1 month) Serious lung disease, including pneumonia (< 1 month) Abnormal pulmonary function Acute myocardial infarction Congestive heart failure (< 1 month) History of inflammatory bowel disease Medical patient at bed rest Age 61-74 Arthroscopic surgery Major open surgery (> 45 min) Laparoscopic surgery (> 45 min) Malignancy Confined to bed (> 72 hours) Immobilizing plaster cast Central venous access Age >= 75 History of VTE Family history of VTE Factor V Leiden Prothrombin [id number] Lupus anticoagulant Anticardiolipin antibodies Elevated serum homocysteine Heparin-induced thrombocytopenia Other congenital or acquired thrombophilia Stroke (< 1 month) Elective arthroplasty Hip, pelvis, or leg fracture Acute spinal cord injury (< 1 month) Prophylaxis Regimen Total Risk Factor Score Risk Level Prophylaxis Regimen 0-1 Low Early ambulation 2 Moderate Order ONE of the following: *Sequential Compression Device (SCD) *Heparin 5000 units SQ BID 3-4 Higher Order ONE of the following medications: *Heparin 5000 units SQ TID *Enoxaparin/Lovenox 40 mg SQ daily (WT < 150 kg, CrCl > 30 mL/min) *Enoxaparin/Lovenox 30 mg SQ daily (WT < 150 kg, CrCl > 10-29 mL/min) *Enoxaparin/Lovenox 30 mg SQ BID (WT < 150 kg, CrCl > 30 mL/min) AND/OR *Sequential Compression Device (SCD) 5 or more Highest Order ONE of the following medications: *Heparin 5000 units SQ TID (Preferred with Epidurals) *Enoxaparin/Lovenox 40 mg SQ daily (WT < 150 kg, CrCl > 30 mL/min) *Enoxaparin/Lovenox 30 mg SQ daily (WT < 150 kg, CrCl > 10-29 mL/min) *Enoxaparin/Lovenox 30 mg SQ BID (WT < 150 kg, CrCl > 30 mL/min) AND *Sequential Compression Device (SCD) Assessment and Plan Assessment and Plan 62-year-old man being admitted for sepsis due to cellulitis. Code Status Full code Discussed Condition With wdw Dr. Blankenship and resident medicine service Problem List: (1) Sepsis ICD Codes: A41.9 - Sepsis, unspecified organism Status: Acute Plan: Patient meeting sepsis criteria on admission with increased pulse and leukocytosis Source due to cellulitis Lactic acid 1.0 Will give 1L NS bolus Continue with NS at 125 cc/hr Blood cultures pending (2) Cellulitis ICD Codes: L03.90 - Cellulitis, unspecified Plan: s/p Vancomycin 1gm IV and Zosyn 4.5gm IV in the ED Continue with vancomycin IV, pharmacy consult to assist with dosing given acute kidney injury Continue Zosyn 4.5 g IV q6h De-escalate antibiotic therapy pending clinical response and results of blood cultures if positive MRI foot demonstrating cellulitis of the forefoot especially on the dorsum of the foot, no osteomyelitis identified (3) RORO (acute kidney injury) ICD Codes: N17.9 - Acute kidney failure, unspecified Status: Acute Plan: Cr 1.45 on admission, baseline ~1.1 Likely prerenal in etiology due to hypovolemia, possibly from third spacing given his sepsis Continue IV fluid hydration as above (4) Hypertension ICD Codes: I10 - Hypertension Status: Chronic Plan: Patient has a history of hypertension States he only takes one antihypertensive at this time Continue amlodipine 5 mg daily (5) Nutrition, metabolism, and development symptoms ICD Codes: R63.8 - Other symptoms and signs concerning food and fluid intake Status: Acute Plan: Fluids: NS at 125 cc/hr Electrolytes: Continue to monitor, replete as needed Nutrition: Regular DVT ppx: b/l SCDs, will add chemical anticoagulation if anticipating a longer hospital stay and no indication for surgical intervention GI ppx: Protonix 40 mg po daily Physician Certification 2 Midnight Certification Type: Admission for Inpatient Services Order for Inpatient Services The services are ordered in accordance with Medicare regulations or non- Medicare payer requirements, as applicable. In the case of services not specified as inpatient-only, they are appropriately provided as inpatient services in accordance with the 2-midnight benchmark. Estimated LOS (days): 2 days is the estimated time the patient will need to remain in the hospital, assuming treatment plan goals are met and no additional complications. Post-Hospital Plan: Home Ramon Juarez MD R2 Oct 03, 2017 20:11
[2017-10-03 20:30] VITALS: BP 112/76; PULSE 70; RESP 17; TEMP 97.6; O2SAT 97
[2017-10-03] MEDS ORDERED: PHARMACY ORDERED LAB ONE (21:00)
[2017-10-03] MEDS ORDERED: VANCOMYCIN 1,000 MG/NS 250 ML IV ONE ×2 (21:00)
[2017-10-03] MEDS ORDERED: GADODIAMIDE PF 287 MG/ML 5 ML VIAL (for RAD MRI) IV PUSH ONE (21:45)
[2017-10-03] MEDS: DOCUSATE SODIUM 50 MG/SENNA 8.6 MG TAB PO SCH (22:13)
[2017-10-03] MEDS: SODIUM CHLOR 0.9% 1000 ML INJ 1,000 ML IV SCH (22:13)
[2017-10-03] MEDS: ACETAMINOPHEN/HYDROcodone 325 MG/10 MG TAB PO PRN (22:14)
[2017-10-03] MEDS: amLODIPine BESYLATE 5 MG TAB PO SCH (22:14)
[2017-10-03] MEDS: PIPERACIL-TAZO 4.5 GM PREMIX 100 ML IV SCH (22:16)
--- NOTE | 2017-10-03 22:16 | RADRPT ---
EXAM DATE/TIME: 10/03/2017 21:19 [facility] COMPARISON: No previous studies available for comparison. INDICATIONS : Osteomyelitis. Pain and swelling to anterior surface of right mid foot. CONTRAST: 15 cc Omniscan (gadodiamide) IV MEDICAL HISTORY : Hypertension. SURGICAL HISTORY : Lower extremity vascular stents. Back. Right ankle. ENCOUNTER: Subsequent ACUITY: 3 day PAIN SCORE: 3/10 LOCATION: Right foot TECHNIQUE: Multiplanar, multisequence MRI examination was performed without contrast and after the intravenous a dministration of gadolinium. FINDINGS: No marrow signal changes are seen to suggest osteomyelitis. There is edema and soft tissue swelling i n the forefoot on the dorsum of the foot most characteristic of cellulitis. No significant abnormal m arrow enhancement. Susceptibility around the ankle presumably from prior surgical hardware. CONCLUSION: 1. Cellulitis of the forefoot especially on the dorsum of the foot. No osteomyelitis identified. Chapincito Odell MD on October 03, 2017 at 22:11 Board Certified Radiologist. This report was verified electronically.
[2017-10-03] MEDS: PANTOPRAZOLE SOD 40 MG DELAYED RELEASE TAB PO SCH (22:17)
[2017-10-03] MEDS ORDERED: SODIUM CHLOR 0.9% 1000 ML INJ 1,000 ML IV ONE (22:30)
[2017-10-04] VITALS (9 sets, daily range): BP systolic 110–118; BP diastolic 69–78; PULSE 60–93; RESP 17–18; TEMP 97.5–98.1; O2SAT 96–99
[2017-10-04] MEDS: SODIUM CHLOR 0.9% 1000 ML INJ 1,000 ML IV SCH ×3 (03:24→22:17)
[2017-10-04] MEDS: PIPERACIL-TAZO 4.5 GM PREMIX 100 ML IV SCH ×4 (04:41→22:16)
[2017-10-04] MEDS ORDERED: VANCOMYCIN INJ 1,000 MG in SODIUM CHLOR 0.9% 250 ML INJ 250 ML IV SCH (05:00)
[2017-10-04] MEDS: ACETAMINOPHEN/HYDROcodone 325 MG/10 MG TAB PO PRN ×3 (05:48→14:38)
[2017-10-04 07:05] LABS: AUTOMATED NEUTROPHIL # 5.8 TH/MM3 (1.8-7.7); BASOPHIL # 0.1 TH/MM3 (0-0.2); BASOPHIL % 1.4 % (0.0-2.0); EOSINOPHIL # 0.1 TH/MM3 (0-0.4); EOSINOPHIL % 1.3 % (0.0-4.0); LYMPH % 22.3 % (9.0-44.0); LYMPHOCYTE # 1.9 TH/MM3 (1.0-4.8); MEAN CELL VOLUME 80.9 FL (80.0-100.0); MEAN CORPUSCULAR HEMOGLOBIN 27.9 PG (27.0-34.0); MEAN CORPUSCULAR HGB CONC 34.5 % (32.0-36.0); MONO % 7.4 % (0.0-8.0); NEUT % 67.6 % (16.0-70.0); PLATELET COUNT 342 TH/MM3 (150-450); RED BLOOD COUNT 4.32 MIL/MM3 (4.50-5.90); RED CELL DISTRIBUTION WIDTH 28.8 % (11.6-17.2); WHITE BLOOD COUNT 8.6 TH/MM3 (4.0-11.0)
[2017-10-04 07:08] LABS: HEMO FLAGS AUTO DIFF
[2017-10-04 07:37] LABS: ANION GAP 8 MEQ/L (5-15); AST (GOT) 16 U/L (15-37); BICARBONATE 23.8 MEQ/L (21.0-32.0); BLOOD UREA NITROGEN 13 MG/DL (7-18); CHLORIDE 107 MEQ/L (98-107); GLOMERULAR FILTRATION RATE 85 ML/MIN (>89); POTASSIUM 3.7 MEQ/L (3.5-5.1); SODIUM (NA) 139 MEQ/L (136-145)
[2017-10-04 07:41] LABS: ALKALINE PHOSPHATASE 85 U/L (45-117); ALT (GPT) 11 U/L (12-78); TOTAL BILIRUBIN ADULT 0.4 MG/DL (0.2-1.0)
[2017-10-04] MEDS: DOCUSATE SODIUM 50 MG/SENNA 8.6 MG TAB PO SCH ×2 (08:43→20:18)
[2017-10-04] MEDS: PANTOPRAZOLE SOD 40 MG DELAYED RELEASE TAB PO SCH (08:45)
[2017-10-04 08:49] LABS: SCAN/DIFF AUTO DIFF CONFIRMED
--- NOTE | 2017-10-04 11:21 | HHI.FPPN ---
Subjective Remarks Patient seen, examined and discussed with the medicine team. This is a 62 year-old -[place] male who presented with pain and swelling of his right ankle since before . He has had right ankle ORIF 2, most recently 2011. He started to notice swelling in his ankle on and had difficulty bearing weight on that ankle. He had pain with ambulation and reported that his pain was 10-12 out of 10. He met sepsis criteria at the time of admission. Historically, has hypertension, GERD, bleeding intestinal ulcer, dyslipidemia. He is disabled and has had back surgery. He has peripheral artery disease and has bilateral femoral stents. Quit smoking age 49 uses only occasional alcohol. No illicits. Please see history and physical examination for this admission for additional historical details. This morning, he reports that his pain is somewhat better but still feels unable to put weight on that ankle. He thinks his range of motion is slightly improved. He's had no chest pain, no shortness of breath, no difficulty with bowel or bladder, no pain elsewhere. Objective Vitals Vital Signs Date Time Temp Pulse Resp B/P (MAP) Pulse Ox O2 Delivery O2 Flow Rate FiO2 10/04/17 09:30 86 10/04/17 08:55 97.7 88 18 117/71 (86) 96 10/04/17 05:45 97.7 60 18 110/78 (89) 99 10/04/17 00:00 98.1 66 17 115/75 (88) 98 10/03/17 20:30 97.6 70 17 112/76 (88) 97 10/03/17 18:07 10/03/17 18:02 92 18 122/72 (89) 100 Room Air 10/03/17 14:01 97.8 112 17 124/67 (86) 98 Room Air I/O 10/03/17 10/03/17 10/03/17 10/04/17 10/04/17 10/04/17 07:00 15:00 23:00 07:00 15:00 23:00 Intake Total 450 ml 3574 ml Output Total 500 ml 900 ml Balance -50 ml 2674 ml Intake Oral 0 ml 850 ml IV Total 450 ml 2724 ml Output Urine Total 500 ml 900 ml # Bowel Movements 0 0 Result Diagram: 10/04/17 0645 10/04/17 0615 Other Results Laboratory Tests Test 10/03/17 14:40 10/03/17 15:32 10/03/17 16:15 10/04/17 06:15 White Blood Count 12.4 TH/MM3 Red Blood Count 5.57 MIL/MM3 Hemoglobin 15.0 GM/DL Hematocrit 45.7 % Mean Corpuscular Volume 82.0 FL Mean Corpuscular Hemoglobin 27.0 PG Mean Corpuscular Hemoglobin Concent 32.9 % Red Cell Distribution Width 29.3 % Platelet Count 377 TH/MM3 Mean Platelet Volume 8.5 FL Neutrophils (%) (Auto) 63.1 % Lymphocytes (%) (Auto) 28.2 % Monocytes (%) (Auto) 6.9 % Eosinophils (%) (Auto) 0.4 % Basophils (%) (Auto) 1.4 % Neutrophils # (Auto) 7.8 TH/MM3 Lymphocytes # (Auto) 3.5 TH/MM3 Monocytes # (Auto) 0.9 TH/MM3 Eosinophils # (Auto) 0.0 TH/MM3 Basophils # (Auto) 0.2 TH/MM3 CBC Comment AUTO DIFF Differential Comment AUTO DIFF CONFIRMED Platelet Estimate NORMAL Platelet Morphology Comment CLUMPED Ovalocytes 1+ Blood Urea Nitrogen 18 MG/DL 13 MG/DL Creatinine 1.45 MG/DL 1.07 MG/DL Random Glucose 117 MG/DL 96 MG/DL Total Protein 9.0 GM/DL 7.1 GM/DL Albumin 3.7 GM/DL 2.9 GM/DL Calcium Level 10.0 MG/DL 8.8 MG/DL Alkaline Phosphatase 124 U/L 85 U/L Aspartate Amino Transf (AST/SGOT) 15 U/L 16 U/L Alanine Aminotransferase (ALT/SGPT) 24 U/L 11 U/L Total Bilirubin 0.4 MG/DL 0.4 MG/DL Sodium Level 134 MEQ/L 139 MEQ/L Potassium Level 4.1 MEQ/L 3.7 MEQ/L Chloride Level 103 MEQ/L 107 MEQ/L Carbon Dioxide Level 20.4 MEQ/L 23.8 MEQ/L Anion Gap 11 MEQ/L 8 MEQ/L Estimat Glomerular Filtration Rate 60 ML/MIN 85 ML/MIN C-Reactive Protein 2.58 MG/DL Prothrombin Time 10.2 SEC Prothromb Time International Ratio 0.9 RATIO Activated Partial Thromboplast Time 33.9 SEC Lactic Acid Level 1.0 mmol/L Test 10/04/17 06:45 White Blood Count 8.6 TH/MM3 Red Blood Count 4.32 MIL/MM3 Hemoglobin 12.1 GM/DL Hematocrit 35.0 % Mean Corpuscular Volume 80.9 FL Mean Corpuscular Hemoglobin 27.9 PG Mean Corpuscular Hemoglobin Concent 34.5 % Red Cell Distribution Width 28.8 % Platelet Count 342 TH/MM3 Mean Platelet Volume 7.5 FL Neutrophils (%) (Auto) 67.6 % Lymphocytes (%) (Auto) 22.3 % Monocytes (%) (Auto) 7.4 % Eosinophils (%) (Auto) 1.3 % Basophils (%) (Auto) 1.4 % Neutrophils # (Auto) 5.8 TH/MM3 Lymphocytes # (Auto) 1.9 TH/MM3 Monocytes # (Auto) 0.6 TH/MM3 Eosinophils # (Auto) 0.1 TH/MM3 Basophils # (Auto) 0.1 TH/MM3 CBC Comment AUTO DIFF Differential Comment AUTO DIFF CONFIRMED Imaging Last Impressions Tibia/Fibula X-Ray 10/03/17 1418 Signed Impressions: Service Date/Time: Tuesday, October 03, 2017 14:28 - CONCLUSION: 1. Intact lateral malleolar fixation hardware without evidence for loosening or acute fracture. Emilio Ramsey MD Lower Extremity Ultrasound 10/03/17 1418 Signed Impressions: Service Date/Time: Tuesday, October 03, 2017 14:35 - CONCLUSION: 1. No DVT identified. Jackson Ramirez MD Ankle X-Ray 10/03/17 1418 Signed Impressions: Service Date/Time: Tuesday, October 03, 2017 14:29 - CONCLUSION: 1. Intact lateral malleolar fixation hardware without evidence for loosening or acute fracture. Emilio Ramsey MD Foot MRI 10/03/17 0000 Signed Impressions: Service Date/Time: Tuesday, October 03, 2017 21:19 - CONCLUSION: 1. Cellulitis of the forefoot especially on the dorsum of the foot. No osteomyelitis identified. Chapincito Odell MD Objective Remarks O. CONSTITUTIONAL/GEN: normally nourished, in NAD. EYES: conjunctiva normal, PERRLA, EOMI. ENT: Mouth and pharynx normal. NECK: No thyromegaly LUNGS: clear A-P, respiratory effort is normal. CARDIOVASCULAR: RR without murmur or gallop. No significant edema. GI/ABD: soft without masses, without organomegaly. Active bowel sounds : no CVA tenderness NEURO: No focal deficits. SKIN: color normal, no rashes noted. HEME/LYMPH: no bruising, petechia or significant adenopathy MUSC: back is normal in appearance. Moderate swelling and induration of the right ankle and dorsal right foot. Dorsalis pedis pulse is palpable, and patient is tender over the dorsum of the right foot with some increased warmth. Otherwise extremities show no cyanosis, clubbing or edema. PSYCH/MENTAL STATUS: Alert and oriented x 3. A/P Assessment and Plan 62-year-old man with significant peripheral arterial disease admitted for sepsis due to cellulitis right foot. See orders. Discharge Planning Case management for discharge planning Attending Attestation Patient seen and examined. Case reviewed and discussed with the resident team. Agree with plan of care as discussed with me and documented in the resident note. Problem List: (1) Sepsis ICD Codes: A41.9 - Sepsis, unspecified organism Status: Acute Plan: Patient met sepsis criteria on admission with increased pulse and leukocytosis Source likely due to cellulitis Lactic acid 1.0 Continue with NS at 125 cc/hr Blood cultures pending (2) Cellulitis ICD Codes: L03.90 - Cellulitis, unspecified Plan: s/p Vancomycin 1gm IV and Zosyn 4.5gm IV in the ED Continue with vancomycin IV, pharmacy consult to assist with dosing given acute kidney injury Continue Zosyn 4.5 g IV q6h De-escalate antibiotic therapy pending clinical response and results of blood cultures if positive MRI foot demonstrating cellulitis of the forefoot especially on the dorsum of the foot, no osteomyelitis identified (3) RORO (acute kidney injury) ICD Codes: N17.9 - Acute kidney failure, unspecified Status: Acute Plan: Cr 1.45 on admission, baseline ~1.1 Likely prerenal in etiology due to hypovolemia, possibly from third spacing given his sepsis Continue IV fluid hydration as above (4) Hypertension ICD Codes: I10 - Hypertension Status: Chronic Plan: Patient has a history of hypertension States he only takes one antihypertensive at this time Continue amlodipine 5 mg daily (5) Nutrition, metabolism, and development symptoms ICD Codes: R63.8 - Other symptoms and signs concerning food and fluid intake Status: Acute Plan: Fluids: NS at 125 cc/hr Electrolytes: Continue to monitor, replete as needed Nutrition: Regular DVT ppx: b/l SCDs, will add chemical anticoagulation if anticipating a longer hospital stay and no indication for surgical intervention GI ppx: Protonix 40 mg po daily Desiree Blankenship MD Oct 04, 2017 11:20
[2017-10-04] MEDS: VANCOMYCIN 1,500 MG/NS 500 ML IV SCH ×2 (11:44)
[2017-10-04] MEDS: MORPHINE SULFATE 4 MG/ML INJ IV PUSH PRN ×2 (16:03→20:17)
[2017-10-04 16:49] LABS: HEMOGLOBIN A1a 1.2 %; HEMOGLOBIN A1b 1.7 %; HEMOGLOBIN F 0.3 %; HEMOGLOBIN P3 3.7 %
[2017-10-04] MEDS ORDERED: VANCOMYCIN 1,500 MG/NS 500 ML IV SCH ×2 (17:00)
[2017-10-04] MEDS: amLODIPine BESYLATE 5 MG TAB PO SCH (20:17)
[2017-10-05] MEDS: MORPHINE SULFATE 4 MG/ML INJ IV PUSH PRN ×3 (00:46→09:09)
[2017-10-05 00:59] VITALS: BP 123/74; PULSE 95; RESP 16; TEMP 98.3; O2SAT 95
[2017-10-05] MEDS: SODIUM CHLOR 0.9% 1000 ML INJ 1,000 ML IV SCH ×2 (03:24→05:28)
[2017-10-05 04:00] VITALS: BP 136/75; PULSE 108; RESP 20; TEMP 98.9; O2SAT 95
[2017-10-05] MEDS: PIPERACIL-TAZO 4.5 GM PREMIX 100 ML IV SCH ×2 (04:36→09:42)
[2017-10-05] MEDS: VANCOMYCIN 1,500 MG/NS 500 ML IV SCH ×2 (05:29)
[2017-10-05 08:00] VITALS: BP 144/83; PULSE 107; PULSE 112; RESP 18; TEMP 98.8; O2SAT 96
[2017-10-05 08:33] LABS: AUTOMATED NEUTROPHIL # 6.4 TH/MM3 (1.8-7.7); BASOPHIL # 0.1 TH/MM3 (0-0.2); BASOPHIL % 0.8 % (0.0-2.0); EOSINOPHIL # 0.1 TH/MM3 (0-0.4); EOSINOPHIL % 1.2 % (0.0-4.0); HEMATOCRIT 37.4 % (39.0-51.0); LYMPH % 18.2 % (9.0-44.0); LYMPHOCYTE # 1.6 TH/MM3 (1.0-4.8); MEAN CELL VOLUME 81.2 FL (80.0-100.0); MEAN CORPUSCULAR HEMOGLOBIN 27.1 PG (27.0-34.0); MEAN CORPUSCULAR HGB CONC 33.4 % (32.0-36.0); MONO % 7.5 % (0.0-8.0); NEUT % 72.3 % (16.0-70.0); PLATELET COUNT 403 TH/MM3 (150-450); RED CELL DISTRIBUTION WIDTH 28.1 % (11.6-17.2); WHITE BLOOD COUNT 8.8 TH/MM3 (4.0-11.0)
[2017-10-05 08:38] LABS: HEMO FLAGS AUTO DIFF
[2017-10-05 08:59] LABS: BICARBONATE 24.8 MEQ/L (21.0-32.0); POTASSIUM 3.8 MEQ/L (3.5-5.1)
[2017-10-05] MEDS: PANTOPRAZOLE SOD 40 MG DELAYED RELEASE TAB PO SCH (09:06)
[2017-10-05] MEDS: DOCUSATE SODIUM 50 MG/SENNA 8.6 MG TAB PO SCH (09:06)
[2017-10-05 09:21] LABS: SCAN/DIFF AUTO DIFF CONFIRMED
--- NOTE | 2017-10-05 10:35 | HHI.DCPOC ---
Discharge Care Plan Diagnosis: (1) Cellulitis of right leg Goals to Promote Your Health * To prevent worsening of your condition and complications * To maintain your health at the optimal level Directions to Meet Your Goals Take your medications as prescribed Follow your dietary instruction Follow activity as directed Keep your appointments as scheduled Take your immunizations and boosters as scheduled If your symptoms worsen call your PCP, if no PCP go to Urgent Care Center or Emergency Room Smoking is Dangerous to Your Health. Avoid second hand smoke Call the 24-hour hour crisis hotline for domestic abuse at Jes Roth MD R1 Oct 05, 2017 10:35
--- NOTE | 2017-10-05 10:35 | HHI.DS ---
Discharge Summary Admission Date Oct 03, 2017 at 17:48 Admitting Diagnosis sepsis/right leg cellulitis (1) Sepsis Plan: Patient met sepsis criteria on admission with increased pulse and leukocytosis Source likely due to cellulitis Lactic acid 1.0 Continue with NS at 125 cc/hr Blood cultures pending ICD Codes: A41.9 - Sepsis, unspecified organism Status: Acute (2) Cellulitis Plan: s/p Vancomycin 1gm IV and Zosyn 4.5gm IV in the ED Continue with vancomycin IV, pharmacy consult to assist with dosing given acute kidney injury Continue Zosyn 4.5 g IV q6h De-escalate antibiotic therapy pending clinical response and results of blood cultures if positive MRI foot demonstrating cellulitis of the forefoot especially on the dorsum of the foot, no osteomyelitis identified ICD Codes: L03.90 - Cellulitis, unspecified (3) RORO (acute kidney injury) Plan: Cr 1.45 on admission, baseline ~1.1 Likely prerenal in etiology due to hypovolemia, possibly from third spacing given his sepsis Continue IV fluid hydration as above ICD Codes: N17.9 - Acute kidney failure, unspecified Status: Acute (4) Hypertension Plan: Patient has a history of hypertension States he only takes one antihypertensive at this time Continue amlodipine 5 mg daily ICD Codes: I10 - Hypertension Status: Chronic (5) Nutrition, metabolism, and development symptoms Plan: Fluids: NS at 125 cc/hr Electrolytes: Continue to monitor, replete as needed Nutrition: Regular DVT ppx: b/l SCDs, will add chemical anticoagulation if anticipating a longer hospital stay and no indication for surgical intervention GI ppx: Protonix 40 mg po daily ICD Codes: R63.8 - Other symptoms and signs concerning food and fluid intake Status: Acute Brief History Patient is a pleasant 62 year old man with PMH significant for PAD s/p bilateral femoral stent placement, right ankle ORIF, who presented to the ED for evaluation of right ankle pain and swelling. He states he noticed severe pain around his right ankle starting on morning, stating the pain was a 10/10. He then started to notice swelling later that day. He states currently the pain is still a 10/10 and has only worsened since . States he cannot move his right ankle joint very much. Denies fevers, chills, CP , SOB. Denies previous history of skin or soft tissue infections. States he has never had issues with his hardware in the ankle. States he was able to ambulate on the right foot but with significant pain. Denies any bleeding or drainage. CBC/BMP: 10/05/17 0800 10/05/17 0800 Significant Findings Laboratory Tests Test 10/03/17 14:40 10/03/17 15:32 10/03/17 16:15 10/04/17 06:15 White Blood Count 12.4 TH/MM3 (4.0-11.0) Red Cell Distribution Width 29.3 % (11.6-17.2) Neutrophils # (Auto) 7.8 TH/MM3 (1.8-7.7) Platelet Morphology Comment CLUMPED (NORMAL) Ovalocytes 1+ (NORMAL) Creatinine 1.45 MG/DL (0.60-1.30) Random Glucose 117 MG/DL (74-106) Total Protein 9.0 GM/DL (6.4-8.2) Alkaline Phosphatase 124 U/L (45-117) Sodium Level 134 MEQ/L (136-145) Carbon Dioxide Level 20.4 MEQ/L (21.0-32.0) Estimat Glomerular Filtration Rate 60 ML/MIN (>89) 85 ML/MIN (>89) C-Reactive Protein 2.58 MG/DL (0.00-0.30) Activated Partial Thromboplast Time 33.9 SEC (24.3-30.1) Albumin 2.9 GM/DL (3.4-5.0) Alanine Aminotransferase (ALT/SGPT) 11 U/L (12-78) Test 10/04/17 06:45 10/05/17 08:00 Red Blood Count 4.32 MIL/MM3 (4.50-5.90) Hemoglobin 12.1 GM/DL (13.0-17.0) 12.5 GM/DL (13.0-17.0) Hematocrit 35.0 % (39.0-51.0) 37.4 % (39.0-51.0) Red Cell Distribution Width 28.8 % (11.6-17.2) 28.1 % (11.6-17.2) Neutrophils (%) (Auto) 72.3 % (16.0-70.0) Chloride Level 108 MEQ/L (98-107) Estimat Glomerular Filtration Rate 84 ML/MIN (>89) PE at Discharge O. CONSTITUTIONAL/GEN: normally nourished, in NAD. EYES: conjunctiva normal, PERRLA, EOMI. ENT: Mouth and pharynx normal. NECK: No thyromegaly LUNGS: clear A-P, respiratory effort is normal. CARDIOVASCULAR: RR without murmur or gallop. No significant edema. GI/ABD: soft without masses, without organomegaly. Active bowel sounds : no CVA tenderness NEURO: No focal deficits. SKIN: color normal, no rashes noted. HEME/LYMPH: no bruising, petechia or significant adenopathy MUSC: back is normal in appearance. Moderate swelling and induration of the right ankle and dorsal right foot. Dorsalis pedis pulse is palpable, and patient is tender over the dorsum of the right foot with some increased warmth. Otherwise extremities show no cyanosis, clubbing or edema. PSYCH/MENTAL STATUS: Alert and oriented x 3. Jes Roth MD R1 Oct 05, 2017 10:35
[2017-10-05] MEDS ORDERED: WALKER WHEELS/F1 MIS (10:36)
--- NOTE | 2017-10-05 11:41 | HHI.FPPN ---
Subjective Remarks No acute events overnight. Afebrile, vitals stable. Patient overall states he feels much better. He states his pain is better and has been well controlled with his current regimen. He denies any fevers or chills, chest pain, shortness breath, N/V. (Ramon Juarez MD R2) Objective Vitals Vital Signs Date Time Temp Pulse Resp B/P (MAP) Pulse Ox O2 Delivery O2 Flow Rate FiO2 10/05/17 08:00 112 10/05/17 08:00 98.8 107 18 144/83 (103) 96 10/05/17 04:00 98.9 108 20 136/75 (95) 95 10/05/17 00:59 98.3 95 16 123/74 (90) 95 10/04/17 20:00 85 10/04/17 20:00 97.9 93 18 113/69 (84) 96 10/04/17 16:25 97.9 92 18 118/74 (89) 96 10/04/17 16:00 89 10/04/17 13:00 84 10/04/17 12:00 97.5 85 18 113/69 (84) 97 I/O 10/04/17 10/04/17 10/04/17 10/05/17 10/05/17 10/05/17 07:00 15:00 23:00 07:00 15:00 23:00 Intake Total 3574 ml 100 ml 4378 ml 1100 ml Output Total 900 ml 500 ml 450 ml 220 ml Balance 2674 ml 100 ml 3878 ml 650 ml -220 ml Intake Oral 850 ml 1680 ml IV Total 2724 ml 100 ml 2698 ml 1100 ml Output Urine Total 900 ml 500 ml 450 ml 220 ml # Voids 7 # Bowel Movements 0 (Ramon Juarez MD R2) Result Diagram: 10/05/17 0800 10/05/17 0800 Objective Remarks GENERAL: NAD, lying comfortably in bed NEURO: Alert. Normal speech. logistics solution manager grossly intact. SKIN: Erythema and edema overlying the anterior aspect of his right foot has significantly improved. There remains minimal edema overlying the dorsum of the left foot. No fluctuance. No open skin lesions or wounds. HEAD: Normocephalic. Atraumatic. EYES: EOMI. No scleral icterus. No injection or drainage. ENT: No nasal drainage. Moist mucous membranes. NECK: Supple, trachea midline. No JVD or lymphadenopathy. CARDIOVASCULAR: Regular rate and rhythm without murmurs, rubs, or gallops. Peripheral pulses 2+. RESPIRATORY: Breath sounds clear to auscultation and equal bilaterally, without wheezes, rales, or rhonchi. No accessory muscle use. GASTROINTESTINAL: Abdomen soft, nontender, nondistended MUSCULOSKELETAL: Range of motion with plantarflexion, dorsiflexion, internal and external rotation of his right ankle remains restricted but notably improved since admission. Full range of motion of left ankle. BACK: Nontender without obvious deformity. (Ramon Juarez MD R2) A/P Assessment and Plan 62-year-old man with significant peripheral arterial disease admitted for sepsis due to cellulitis of right foot. Discharge Planning Stable for discharge home today Patient will be given an order for front-wheeled walker (Ramon Juarez MD R2) Attending Attestation Patient seen and examined. Case reviewed and discussed with the resident team. Agree with plan of care as discussed with me and documented in the resident note. (Desiree Blankenship MD) Problem List: (1) Sepsis ICD Codes: A41.9 - Sepsis, unspecified organism Status: Acute Plan: Patient met sepsis criteria on admission with increased pulse and leukocytosis Source likely due to cellulitis Lactic acid 1.0 Continue with NS at 125 cc/hr Blood cultures no growth after 2 days (2) Cellulitis ICD Codes: L03.90 - Cellulitis, unspecified Plan: s/p Vancomycin 1gm IV and Zosyn 4.5gm IV in the ED Will discontinue with vancomycin IV, pharmacy consult to assist with dosing given acute kidney injury Discontinue Zosyn 4.5 g IV q6h Provided prescription for clindamycin 300 mg po q6h for an additional 5 days as an outpatient MRI foot demonstrating cellulitis of the forefoot especially on the dorsum of the foot, no osteomyelitis identified (3) RORO (acute kidney injury) ICD Codes: N17.9 - Acute kidney failure, unspecified Status: Resolved Plan: Resolved Cr 1.45 on admission, baseline ~1.1 Likely prerenal in etiology due to hypovolemia, possibly from third spacing given his sepsis Continue IV fluid hydration as above Cr normalized, 1.08 (4) Hypertension ICD Codes: I10 - Hypertension Status: Chronic Plan: Patient has a history of hypertension States he only takes one antihypertensive at this time Continue amlodipine 5 mg daily (5) Nutrition, metabolism, and development symptoms ICD Codes: R63.8 - Other symptoms and signs concerning food and fluid intake Status: Acute Plan: Fluids: NS at 125 cc/hr Electrolytes: Continue to monitor, replete as needed Nutrition: Regular DVT ppx: b/l SCDs GI ppx: Protonix 40 mg po daily (Ramon Juarez MD R2) Ramon Juarez MD R2 Oct 05, 2017 11:41 Desiree Blankenship MD Oct 06, 2017 09:04
[2017-10-05 12:00] VITALS: BP 133/81; PULSE 72; RESP 20; TEMP 98.6; O2SAT 97
[2017-10-05] MEDS: ACETAMINOPHEN/HYDROcodone 325 MG/10 MG TAB PO PRN (13:28)
[2017-10-05] MEDS ORDERED: CLIN300C5 PO (15:16)
[2017-10-05] MEDS ORDERED: HYDR-3583 PO (15:16)
[2017-10-05] MEDS ORDERED: PERI PO (15:16)
[2017-10-05] MEDS ORDERED: PHARMACY ORDERED LAB ONE (23:45)
== END 2017-10-05 16:11 | disposition home or self-care (01) | DRG 872 ==
LOC: NEPE 13:59 → NEDA 16:58 → OBSVTOIN 17:48 → N05B 18:21
PROVIDERS: ADMIT Family Medicine; ATTEND Family Medicine
DX: A41.9 Sepsis, unspecified organism (principal); N17.9 Acute kidney failure, unspecified; L03.115 Cellulitis of right lower limb; I10 Essential (primary) hypertension; K21.9 Gastro-esophageal reflux disease without esophagitis; E78.5 Hyperlipidemia, unspecified; I73.9 Peripheral vascular disease, unspecified; Z87.891 Personal history of nicotine dependence
CPT/HCPCS: 73590; 73600; 73720; 80048; 80053; 83036; 83605; 85025; 85610; 85730; 86140; 87040; 93971; A9579; J2270; J2543; J3370; J7030; J7040; J7050